=== PATIENT | female | born 1950 | race Caucasian/White ===

== ENCOUNTER → 2020-02-27 15:53 | Outpatient (BNVA) | payer MEDICARE, SELFPAY | PROVIDERS: Referring Provider Registered Nurse; Visit Provider Podiatrist Foot & Ankle Surgery | DX: M79.673 Pain in unspecified foot (principal); M76.61 Achilles tendinitis, right leg; M72.2 Plantar fascial fibromatosis | CPT/HCPCS: 73630 ==

== ENCOUNTER 2020-09-26 06:00 | Outpatient (RCR) | payer MEDICARE, SELFPAY | END 2020-10-26 23:59 | disposition home or self-care (01) | LOC: WPT 06:00 | PROVIDERS: PCP Registered Nurse; Referring Provider Podiatrist Foot & Ankle Surgery; Visit Provider Podiatrist Foot & Ankle Surgery | DX: M76.61 Achilles tendinitis, right leg (principal) | CPT/HCPCS: 97110; 97140; 97161 ==

== ENCOUNTER → 2020-12-03 13:31 | Outpatient (BNVA) | payer MEDICARE, SELFPAY | PROVIDERS: PCP Registered Nurse; Visit Provider Nurse Practitioner Family | DX: Z00.00 Encounter for general adult medical examination without abnormal findings (principal); I10 Essential (primary) hypertension; Z12.31 Encounter for screening mammogram for malignant neoplasm of breast | CPT/HCPCS: 80048 ==

== ENCOUNTER → 2020-12-23 14:20 | Outpatient (BNVA) | payer MEDICARE, SELFPAY | PROVIDERS: PCP Registered Nurse; Visit Provider Podiatrist Foot & Ankle Surgery | DX: M76.61 Achilles tendinitis, right leg (principal); M67.88 Other specified disorders of synovium and tendon, other site; M79.671 Pain in right foot; Z20.822 Contact with and (suspected) exposure to COVID-19 | CPT/HCPCS: 87635 ==

== ENCOUNTER 2020-12-27 05:52 | Day surgery (SDC) | payer MEDICARE, SELFPAY ==
[2020-12-26 09:13] VITALS: BMI 32.8
[2020-12-27] VITALS (8 sets, daily range): BP systolic 122–164; BP diastolic 85–97; PULSE 68–81; RESP 14–23; TEMP 36.6–36.8; O2SAT 97–100
--- NOTE | 2020-12-27 | SCC_ITS ---
Procedure Done: Achilles tendon repair with all right lower extremity CPT code 44259 and 51448 Fluoroscopic guidance, for a cumulative dose of 0.016 mGy, was provided to Dr. Del Rosario by the radiology department. C-arm images were saved for the patient's permanent record. [facility]
[2020-12-27] MEDS: sodium chloride 0.9% 1,000 ML 30 ML IV (06:40)
--- NOTE | 2020-12-27 06:45 | P.OP_ITS ---
Operative Report Date of procedure: December 27, 2020 Pre-op Diagnosis: Achilles tendon tear and haglunds deformity right lower extremity
[2020-12-27] MEDS: midazolam 1 mg/mL INJ 2 mL 2 MG IVP (06:46)
--- NOTE | 2020-12-27 06:46 | P.HPUD_ITS ---
Surgery/Procedure H&P Update DATE OF PROCEDURE: December 27, 2020 DATE H&P PERFORMED: 12/23/20 H&P UPDATE INFORMATION: I have reviewed H&P completed within last 30 days, I have examined patient prior to procedure, No changes to prior documentation and H&P is in [facility] on date indicated PREOP DIAGNOSIS: Achilles tendon tear and haglunds deformity right lower extremity PLANNED PROCEDURE: Operation Date: 12/27/20 07:00 Proposed Procedures p Tendon Repair Foot 29203 [id number] M76.61 Arthrex(Right) - Pancho Del Rosario DPM s Haglunds Resection(Right) - Pancho Del Rosario DPM s Tendon Lengthening Foot(Right) - Pancho Del Rosario DPM
--- NOTE | 2020-12-27 06:46 | P.OP_ITS ---
Operative Report Date of procedure: December 27, 2020 Pre-op Diagnosis: Achilles tendon tear and haglunds deformity right lower extremity Post-op diagnosis: same Procedure Done: Achilles tendon repair with all right lower extremity CPT code 2 7654 and 52103 Implants: Arthrex speed bridge Achilles, 3-0 Vicryl, 3-0 nylon Pathology: none sent Surgeon: Pancho Del Rosario D.P.M. Care Team Coordinator Scheduler: Pedro Anesthesia: General Estimated blood loss: Less than 5 ml Tourniquet time: See operative documentation IV fluids: None Urine output: None Complications: None Condition: stable Disposition: PACU Brief History: Patient held conservative treatments consisting of rest, activity modifications, at home physical therapy, formal physical therapy, anti- inflammatories both steroidal and nonsteroidal, eccentric loading, stretching and night splint at progressive pain necessitating surgical correction this pain has been consuming for her has pain on a daily basis with everyday activities. Risks for surgical intervention include but are not limited to pain, bleeding, numbness, infection, surgical site dehiscence, delayed healing, surgical site infection, soft tissue/skin necrosis at the surgical site, Achilles tendon rupture, lengthening or shortening of Achilles tendon, need for further surgical intervention. Also need for physical therapy and bracing postoperatively as a possibility. Patient wishes to proceed, has been n.p.o. since midnight, Covid negative, informed consent signed, initialed her right lower extremity, no guarantees written, expressed or implied. Procedure: Under mild sedation the patient was brought to the operating room and remained on the gurney in supine position. A timeout was performed. Anesthesia was then administered by the anesthesia service. Patient was then positioned in prone position on the operative table with appropriate bumping and support. Well-padded pneumatic tourniquet was applied to the right high calf. Right lower extremity was scrubbed, prepped and draped utilizing normal aseptic technique. Right foot was then wrapped with an Esmarch bandage and the tourniquet inflated to 250 mmHg. Attention was directed to the posterior right heel and Achilles tendon was palpated. Curvilinear lazy S incision performed midline of the Achilles tendon coursing distally deviated medially then back centrally inferior to the Katherine's prominence. This was a full-thickness incision including the peritenon and reflected. The medial portion of the Achilles tendon as well as reflected of its attachment site with maintaining lateral attachment an oscillating saw utilized to resect the Katherine's resection bony resection was 3 cm wide by 3 cm long by 1 cm thick and all rough edges smoothed and all bony prominences smooth with a rasp. Next utilizing an Achilles speed bridge with 2 high to low the Achilles tendon was brought into reapposition of the posterior calcaneus with excellent tenderness to bone contact and Achilles out to proper length. Incision was flushed with saline solution and closed with 3-0 Vicryl with peritenon and subcutaneous tissue and 3-0 nylon and 3-0 nylon with a combination of simple interrupted suture and horizontal mattress on skin. This was then dressed with jumpstart, 4 x 4, Kerlix followed by application of multilayer compressive Camilo splint. Tourniquet was deflated and a prompt hyperemic response was noted to the distal digits of the right foot. Patient tolerated the procedure and anesthesia well and was transferred to the PACU with vital signs stable and vascular status intact. Following a period of postoperative monitoring she will be discharged home was prescribed Percocet 10/325 to be taken judiciously as needed for pain. She is to remain strict nonweightbearing to the right lower extremity. She was given at home care instructions on discharge paperwork. Postop intraoperative and in PACU x-rays were taken and noted to have improved resection of Katherine's deformity.
--- NOTE | 2020-12-27 06:59 | ANES.PREANE2 ---
Pre-Anesthetic Assessment Pre-Anesthetic Assessment: Height/Weight: Height 1.7 m Weight 95.254 kg Preop Diagnosis: Achilles tendon tear and haglunds deformity right lower extremity Proposed Procedure: Operation Date: 12/27/20 07:00 Proposed Procedures p Tendon Repair Foot 90094 [id number] M76.61 Arthrex(Right) - Pancho Del Rosario DPM s Haglunds Resection(Right) - SKYLAR [place] Tendon Lengthening Foot(Right) - Pancho Del Rosario DPM Familial anesthetic complications: None Was Beta Fernando taken within 24 hours: N/A Was Clonidine taken within 24 hours: N/A Last intake: Intake Last Liquid Date 12/26/20 Last Liquid Time 23:20 Last Solid Date 12/26/20 Last Solid Time 18:00 Social: Social History: No alcohol and No tobacco Exam: Pre-Anes Outpt Exam: alert, oriented x 3, clear to auscultation bilaterally and regular rate & rhythm Airway: Cervical ROM: WNL MP: 3 Dentition: Full CV/HEM: CV/HEM: HTN Anesthetic Plan: ASA status: 2 Anesthesia: General and Regional (specify below) Risk of > 500 ml blood loss (7ml/kg in children): No PFSH Anesthesia PFSH: Medical History Hypertension Family History Father CAD (coronary artery disease) Mother Cancer lung Social History Alcohol intake: never Current occupational status: retired Data Anesthesia Cardiac Studies: No Data to Display
[2020-12-27] MEDS: clindamycin 600 MG/50 ML PREMIX 100 MG IV (07:00)
--- NOTE | 2020-12-27 07:00 | ANES.PROC ---
Anesthesia Procedures Procedure/Date: 12/27/20 Nerve Block ^: Nerve Block 1: Main Anesthesia: general anesthesia Time Out Performed: Yes Consent: requested by attending/covering physician, from patient, risks and benefits reviewed and patient agrees to proceed Nerve block location: popliteal (R) Anesthesia monitors applied: pulse oximetry, EKG, BP cuff and oxygen Nerve block position: semi sitting Anesthetic Used: ropivicaine 0.5% and with decadron (4 mg) Amount of anesthesia used (mL): 30 Ultrasound used to: recognize landmarks Nerve Stimulator Used?: No Interscalene/Femoral BLK: 4 stimuplex 21 g needle used for position and inplane approach, visualize local anesthetic spread and no vascular puncture identified Injection: neg aspiration of heme Patient Tolerated Procedure: well Complications: none
--- NOTE | 2020-12-27 08:53 | XR_ITS ---
WS: [id number] Exam: XR foot RT 2V [id number] Date/Time of Exam: 12/27/2020 8:56 AM Reason For Exam: POST OP An osteotomy is noted along the posterior aspect the calcaneus. Postoperative change in the adjacent soft tissues. No acute fracture or dislocation. A splint stabilizes the foot and ankle. XR/XR foot RT 2V [id number] IMPRESSION: 1. Osteotomy of the posterior calcaneus as noted above.
--- NOTE | 2020-12-27 12:18 | ANE.PACU2 ---
Inpatient post-anesthesia follow up: Airway intact: Yes Vital signs: Temperature 97.9 F Pulse Rate 68 Respiratory Rate 17 Blood Pressure 137/88 Pulse Oximetry 99 Oxygen Delivery Me thod Room Air Oxygen Flow Rate 6 Fraction of Inspir ed Oxygen Hydration adequate: Yes Nausea and vomiting: No Pain level: 2 Mental status: Baseline
== END 2020-12-27 11:00 | disposition home or self-care (01) ==
PROVIDERS: PCP Registered Nurse; Visit Provider Podiatrist Foot & Ankle Surgery
PROC: (CPT 27654; principal; 2020-12-27 07:00)
PROC: (CPT 27654; 2020-12-27 07:00)
PROC: (CPT 28261; 2020-12-27 07:00)
DX: S86.011A Strain of right Achilles tendon, initial encounter (principal); X58.XXXA Exposure to other specified factors, initial encounter; M92.61 Juvenile osteochondrosis of tarsus, right ankle; I10 Essential (primary) hypertension; Z82.49 Family history of ischemic heart disease and other diseases of the circulatory system
CPT/HCPCS: 27654; 28120; 64450; 73620; 76000; 76942; 96374; C1713; J1100; J1885; J2250; J2405; J2704; J2795; J3010; J3490; J7030

== ENCOUNTER → 2021-05-20 08:23 | Outpatient (BNVA) | payer MEDICARE, SELFPAY | PROVIDERS: PCP Registered Nurse; Visit Provider Podiatrist Foot & Ankle Surgery | DX: B35.1 Tinea unguium (principal) | CPT/HCPCS: 80053 ==

== ENCOUNTER → 2021-07-14 11:31 | Outpatient (BNVA) | payer MEDICARE, SELFPAY | PROVIDERS: PCP Registered Nurse; Visit Provider Nurse Practitioner Family | DX: B35.1 Tinea unguium (principal); I10 Essential (primary) hypertension; Z79.890 Hormone replacement therapy | CPT/HCPCS: 80053 ==